=== PATIENT | female | born 1970 | race Caucasian/White ===

== ENCOUNTER 2021-06-30 07:29 | Day surgery (SDC) | payer BC ==
[2021-06-22 10:36] LABS: BASOPHILS % (AUTO) 0.5 % (0-1); EOSINOPHILS # (AUTO) 0.1 X10'3 (0-0.9); EOSINOPHILS % (AUTO) 2.2 % (0-6); LYMPHOCYTES # (AUTO) 1.6 X10'3 (1.1-4.8); LYMPHOCYTES % (AUTO) 24.7 % (21-51); MEAN CORPUSCULAR HEMOGLOBIN 35.2 PG (27.0-31.0); MEAN CORPUSCULAR HGB CONC 34.7 g/dL (33.0-36.5); MEAN CORPUSCULAR VOLUME 101.3 FL (78-98); MEAN PLATELET VOLUME 7.6 FL (7.4-10.4); MONOCYTES # (AUTO) 0.5 X10'3 (0-0.9); MONOCYTES % (AUTO) 7.6 % (2-12); NEUTROPHILS # (AUTO) 4.1 X10'3 (1.8-7.7); PRE OP HEMATOCRIT 40.8 % (35.0-45.0); PRE OP HEMOGLOBIN 14.2 g/dL (12.0-16.0); PRE OP PLATELET COUNT 379 X10'3 (140-440); RED BLOOD COUNT 4.03 X10'6 (4.20-5.60); RED CELL DISTRIBUTION WIDTH 12.9 % (11.5-14.5)
[2021-06-22 11:46] LABS: ALBUMIN 3.7 G/DL (3.4-5.0); ALBUMIN/GLOBULIN RATIO 1.3 (1.1-1.5); ALKALINE PHOSPHATASE 68 IU/L (46-116); BLOOD UREA NITROGEN 19 MG/DL (7-18); BUN/CREATININE RATIO 35.8 (6.6-38.0); CALCIUM 8.5 MG/DL (8.5-10.1); CHLORIDE 106 MMOL/L (99-107); CREATININE 0.53 MG/DL (0.40-0.90); PRE OP ALT 20 U/L (30-65); PRE OP ANION GAP 5 (8-16); PRE OP AST 12 U/L (10-37); PRE OP BILIRUB, TOTAL 0.3 MG/DL (0.0-1.0); PRE OP GLUCOSE 92 MG/DL (70-104); PRE OP POTASSIUM 4.4 MMOL/L (3.4-5.1); PRE OP SODIUM 143 MMOL/L (135-145); TOTAL CARBON DIOXIDE 31.9 MMOL/L (24-32); TOTAL PROTEIN 6.6 G/DL (6.4-8.2); eGFR > 90 ML/MIN
[2021-06-30] VITALS (11 sets, daily range): BP systolic 93–120; BP diastolic 52–81
[~2021-06-30] VITALS: Ht 170.2 cm; Wt 74.0 kg
[~2021-06-30 07:29] MED LIST: BUPIVAcaine 0.5% inj/PF 30 ML ONE; LEVO100T PO; LIDOcaine 1% 30ml preserv. free vial ONE; PROG100C11 PO; cefazolin/dext.iso 2gm/50ml IV ONE; famotidine 20mg tablet PO ONE; ringers solution, lacted 1,000 ML IV SCH
[2021-06-30] MEDS ORDERED: morphine 2 MG/ML inj. syringe IV PRN (09:05)
[2021-06-30] MEDS ORDERED: proCHLORperazine 10 MG/2 ml inj IV PRN (09:05)
[2021-06-30] MEDS ORDERED: ringers solution, lacted 1,000 ML IV SCH (09:05)
[2021-06-30] MEDS ORDERED: meperidine/PF 25mg/ml syringe IV PRN ×3 (09:05)
[2021-06-30] MEDS ORDERED: ondansetron/PF 4mg/2ml inj IV PRN (09:05)
[2021-06-30] MEDS ORDERED: morphine 4 MG/ML inj SYRINge IV PRN (09:05)
[2021-06-30] MEDS ORDERED: HYDROcodone/acetaminophen 5mg/325mg tablet PO ONE ×2 (10:15→10:45)
[2021-06-30] MEDS ORDERED: dexamethasone sod phosphate 10mg/ml inj ONE (11:55)
[2021-06-30] MEDS ORDERED: sevoflurane 250ml liquid IH ONE (11:55)
[2021-06-30] MEDS ORDERED: midazolam 1 mg/ML 2ml injection ONE (12:02)
[2021-06-30] MEDS ORDERED: fentaNYL/PF 50MCG/1 ML 2ML syringe ONE (12:02)
[2021-06-30] MEDS ORDERED: propofol inj 20 ML IV ONE (12:09)
[2021-06-30] MEDS ORDERED: LIDOcaine 2% (20mg/ml) 5ml vial ONE (12:09)
[2021-06-30] MEDS ORDERED: ondansetron/PF 4mg/2ml inj ONE (12:11)
[2021-06-30] MEDS ORDERED: BUPIVAcaine 0.5% inj/PF 30 ml vial IJ ONE (12:21)
--- NOTE | 2021-06-30 12:55 | NUR ---
Received from OR via [facility], accompanied by Anesthesiologist DR MADRID and report given by Anesthesiologist. PT DROWSY, DENIES PAIN. UMBILICUS W/GLUE OVER INCISION CDI. Addendum: 06/30/21 at 1312 by Kaylyn Antonio RN Amended: Links added.
[2021-06-30] MEDS ORDERED: HYDROcodone/acetaminophen 5mg/325mg tablet PO PRN (13:05)
--- NOTE | 2021-06-30 14:45 | NUR ---
PT UP AND ABLE TO AMBULATE SAFELY, VOIDED, PAIN IMPROVING AFTER NORCO. D/C INSTRUCTIONS GIVEN AND GONE OVER W/PT WHO VERBALIZED UNDERSTANDING. PT D/CD TO HOME VIA W/C TO PRIVATE VEHICLE W/O INCIDENT. Addendum: 06/30/21 at 1455 by Kaylyn Antonio RN Amended: Links added.
== END 2021-06-30 14:45 | disposition home or self-care (01) ==
LOC: PAS 07:29
PROVIDERS: ATTEND Surgery
DX: K42.9 Umbilical hernia without obstruction or gangrene (principal); E03.9 Hypothyroidism, unspecified; Z20.822 Contact with and (suspected) exposure to COVID-19; Z79.899 Other long term (current) drug therapy; Z90.49 Acquired absence of other specified parts of digestive tract; Z98.890 Other specified postprocedural states; Z72.89 Other problems related to lifestyle; Z87.891 Personal history of nicotine dependence
CPT/HCPCS: 36415; 49585; 80053; 82948; 85025; 93005; J2250; J2405; J2704; J3010; J3490; J7030; J7120; S0020; U0003; U0005; Z7506; Z7512; A4618; A7000; J0690; J1100

== ENCOUNTER 2023-10-13 20:06 | Emergency (ER) | payer BC ==
[~2023-10-13] VITALS: Ht 170.2 cm; Wt 69.1 kg
[~2023-10-13 20:06] MED LIST changes: -BUPIVAcaine 0.5% inj/PF 30 ML ONE; -LIDOcaine 1% 30ml preserv. free vial ONE; -cefazolin/dext.iso 2gm/50ml IV ONE; -famotidine 20mg tablet PO ONE; -ringers solution, lacted 1,000 ML IV SCH
[2023-10-13 20:10] VITALS: BP 102/51; PULSE 78; O2SAT 98
[2023-10-13 20:56] VITALS: RESP 17; TEMP 98.6
== END 2023-10-13 21:05 | disposition home or self-care (01) ==
LOC: ER 20:06
DX: S90.32XA Contusion of left foot, initial encounter (principal); Z79.2 Long term (current) use of antibiotics; Z79.899 Other long term (current) drug therapy; X58.XXXA Exposure to other specified factors, initial encounter; Y93.89 Activity, other specified; Y92.89 Other specified places as the place of occurrence of the external cause; Y99.8 Other external cause status
CPT/HCPCS: 73630; 99283